=== PATIENT | male | born 1945 | race Caucasian/White ===

== ENCOUNTER 2016-10-07 07:28 | Outpatient (CLI) | payer MEDICARE | END 2016-10-07 07:29 | disposition home or self-care (01) | DX: I12.9 Hypertensive chronic kidney disease with stage 1 through stage 4 chronic kidney disease, or unspecified chronic kidney disease (principal); N18.1 Chronic kidney disease, stage 1; R73.9 Hyperglycemia, unspecified; E78.5 Hyperlipidemia, unspecified; R97.20 Elevated prostate specific antigen [PSA] ==

== ENCOUNTER 2017-07-26 17:38 | Outpatient (CLI) | payer MEDICARE ==
--- NOTE | 2017-07-27 14:48 | XRAY Report ---
FOUR-VIEW LEFT KNEE: 07/26/2017 CLINICAL INDICATION: Fall, pain. FINDINGS: AP, lateral, bilateral oblique views of the left knee demonstrate no evidence of acute fracture or dislocation. Mild osteoarthritis is present, with small osteophytes. A moderate effusion is seen. No lipohemarthrosis is present. IMPRESSION: MILD DEGENERATIVE CHANGES. MODERATE EFFUSION. NO EVIDENCE OF FRACTURE. edited sai TD: 07/27/2017 15:47 [facility]
== END 2017-07-26 17:39 | disposition home or self-care (01) ==
LOC: DI 17:38
PROVIDERS: ATTEND Nurse Practitioner Family
DX: M17.12 Unilateral primary osteoarthritis, left knee (principal); M25.462 Effusion, left knee

== ENCOUNTER 2017-08-01 10:09 | Outpatient (CLI) | payer MEDICARE ==
--- NOTE | 2017-08-01 16:45 | MRI Report ---
EXAM: LEFT KNEE MRI WITHOUT CONTRAST EXAM DATE: 08/01/2017 10:59 AM. CLINICAL HISTORY: Pain in left knee. COMPARISON: None. TECHNIQUE: Multiplanar, multisequence T1-weighted and fluid-sensitive sequences of the knee without c ontrast. Other: None. FINDINGS: Bones: No fractures or subluxations. No marrow edema. No bone lesions. Articular Cartilage: There is mild thinning of the articular cartilage on both sides of the medial co mpartment. 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 Medial Meniscus: The medial meniscus is intact. Lateral Meniscus: The lateral meniscus is intact. Cruciate Ligaments: The anterior and posterior cruciate ligaments are intact. Collateral Ligaments: There is some thickening of the anterior aspect of the proximal MCL. No focal f luid-filled gap is seen. Tendons: The quadriceps, patellar, semimembranosus, and popliteus tendons are unremarkable. Musculature: No edema or fatty atrophy. Other: No effusion. No discrete popliteal cyst. Multifocal ganglion cyst arises from the posterior as pect of the PCL region. Series 601 image 15, series 801 image 24. No loose bodies. The medial and lat eral retinacula are intact. Some soft tissue swelling and edema is present. IMPRESSION: 1. Mild thinning of the articular cartilage in both sides of the medial compartment. Lateral compartm ent is unremarkable. Bones show no fractures. There is also some grade 3-4 chondromalacia at the medi al aspect of patellofemoral joint. 2. Multifocal ganglion cyst arises from the posterior aspect of intercondylar notch, adjacent to the posterior margin of the PCL. This is 0.8 x 1.9 cm transversely extending for a 4.2 cm cephalocaudal e xtent. 3. Menisci, cruciates and collaterals unremarkable. There is some thickening of the anterior proximal MCL fibers, of uncertain consequence, possibly from previous injury and healing. [facility] MUSCULOSKELETAL RADIOLOGY SECTION Referring Provider Line: [phone] SITE ID: [id number]
== END 2017-08-01 10:10 | disposition home or self-care (01) ==
LOC: DI 10:09
PROVIDERS: ATTEND Family Medicine
DX: M22.42 Chondromalacia patellae, left knee (principal); M67.462 Ganglion, left knee

== ENCOUNTER 2017-11-04 17:24 | Inpatient (IN) | payer MEDICARE ==
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
[2017-11-04] MEDS ORDERED: ACETAMINOPHEN 325 MG TABLET PO PRN (18:33)
[2017-11-04] MEDS ORDERED: HYDROmorphone 1 MG/ML CARPUJECT IVP PRN (18:33)
[2017-11-04] MEDS ORDERED: ONDANSETRON ODT 4 MG TABLET TL PRN (18:33)
[2017-11-04 18:35] LABS: BASOPHILS % (AUTO) 0.3 %; EOSINOPHILS # (AUTO) 0.1 10^3/uL (0.0-0.7); EOSINOPHILS % (AUTO) 0.8 %; HGB - HEMOGLOBIN 14.6 g/dL (14.0-18.0); LYMPHOCYTES # (AUTO) 1.2 10^3/uL (1.5-3.5); LYMPHOCYTES % (AUTO) 9.1 %; MEAN CORPUSCULAR HEMOGLOBIN 31.7 pg (27.0-31.0); MEAN CORPUSCULAR HGB CONC 32.8 g/dL (32.0-36.0); MEAN CORPUSCULAR VOLUME 96.7 fL (80.0-94.0); MEAN PLATELET VOLUME 8.2 fL (7.4-11.4); MONOCYTES # (AUTO) 0.9 10^3/uL (0.0-1.0); MONOCYTES % (AUTO) 7.4 %; NEUTROPHILS # (AUTO) 10.5 10^3/uL (1.5-6.6); NEUTROPHILS % (AUTO) 82.4 %; PLT - PLATELET COUNT 209 10^3/uL (130-450); RED BLOOD COUNT 4.59 10^6/uL (4.70-6.10); RED CELL DISTRIBUTION WIDTH 13.9 % (12.0-15.0); WHITE BLOOD COUNT 12.8 x10^3/uL (4.8-10.8)
[2017-11-04] MEDS ORDERED: CYCLOBENZAPRINE 10 MG TABLET PO PRN (18:38)
[2017-11-04 18:40] LABS: CALCIUM 9.1 mg/dL (8.5-10.3); CREATININE 1.2 mg/dL (0.6-1.2)
--- NOTE | 2017-11-04 19:23 | XRAY Report ---
EXAM: CHEST RADIOGRAPHY EXAM DATE: 11/04/2017 06:35 PM. CLINICAL HISTORY: Chest pain. COMPARISON: None. TECHNIQUE: 1 view. FINDINGS: Lungs/Pleura: Clear. No effusion or pneumothorax. Mediastinum: Overall heart size borderline for cardiomegaly. Upper lobe vessels not distended. Other: None. IMPRESSION: No acute disease. [facility] Referring Provider Line: [phone] SITE ID: [id number]
--- NOTE | 2017-11-04 19:23 | XRAY Preliminary Report ---
Exam: XR CHEST 1 VIEW X-RAY IMPRESSION: No acute disease. [facility] SITE ID: [id number]
--- NOTE | 2017-11-04 19:26 | XRAY Report ---
EXAMS: 1. Right Knee Radiography 2. Left Knee Radiography EXAM DATE:11/04/2017 06:35 PM. CLINICAL HISTORY:B knee pain, poss quad tendon rupture s/p fall. COMPARISON: Left knee dated 07/26/2017. TECHNIQUE: 4 views each. FINDINGS: Right Knee: Bones: Normal. No fractures or bone lesions. Joints: Joint spaces well-preserved. Small joint effusion. Soft Tissues: Normal. No soft tissue swelling. Left Knee: Bones: Normal. No fractures or bone lesions. Joints: Joint spaces well-preserved. Moderate joint effusion. At least 2 small loose bodies in tool coordinator ior medial compartment. Soft Tissues: Small nonspecific soft tissue calcification lateral to distal femoral diametaphysis. IMPRESSION: Small to moderate joint effusions, left more than right, with small loose bodies on the left. [facility] Referring Provider Line: [phone] SITE ID: [id number]
[2017-11-04] MEDS: D5NS W/20 MEQ KCL 1,000 ML IV SCH (20:05)
[2017-11-04] MEDS: SODIUM CHLORIDE FLUSH 0.9% 10 ML SYRINGE IVP PRN (20:05)
[2017-11-05] MEDS ORDERED: diazePAM 5 MG TABLET PO PRN (00:18)
[2017-11-05] MEDS: ATENOLOL 25 MG TABLET PO SCH ×2 (00:52→21:31)
[2017-11-05] MEDS: oxyCODONE 5 MG TABLET PO PRN ×3 (00:53→21:31)
[2017-11-05] MEDS: SODIUM CHLORIDE FLUSH 0.9% 10 ML SYRINGE IVP SCH ×3 (00:53→15:40)
[2017-11-05] MEDS: D5NS W/20 MEQ KCL 1,000 ML IV SCH ×3 (06:09→23:09)
[2017-11-05] MEDS: POLYETHYLENE GLYCOL 3350 17 GM PACKET PO SCH (07:48)
[2017-11-05] MEDS: LOSARTAN 50 MG TABLET PO SCH ×2 (08:09→15:41)
[2017-11-05] MEDS: hydroCHLOROthiazide 25 MG TABLET PO SCH ×2 (08:09→15:42)
[2017-11-05] MEDS: FAMOTIDINE 20 MG TABLET PO SCH (08:09)
[2017-11-05] MEDS ORDERED: OLMESARTAN MEDOXOMIL 40 MG PO SCH (09:00)
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
[2017-11-05] MEDS ORDERED: BUPIVACAINE 0.25%-EPI 1:200000 PF 30 ML VIAL ONE (10:23)
[2017-11-05] MEDS ORDERED: LACTATED RINGERS 1,000 ML IV ONE ×3 (11:10→13:05)
[2017-11-05] MEDS ORDERED: CLINDAMYCIN 600 MG/50 ML 50 ML IV ONE (11:33)
[2017-11-05] MEDS ORDERED: BUPIVACAINE 0.25%-EPI 1:200000 PF 30 ML VIAL SUBQ ONE ×3 (12:23→12:37)
[2017-11-05] MEDS ORDERED: ePHEDrine 50 MG/ML VIAL IVP ONE (13:00)
[2017-11-05] MEDS ORDERED: fentaNYL 250 MCG/5 ML VIAL IVP ONE (13:00)
[2017-11-05] MEDS ORDERED: KETOROLAC 30 MG/ML VIAL IVP ONE (13:00)
[2017-11-05] MEDS ORDERED: ONDANSETRON 4 MG/2 ML VIAL IVP ONE (13:00)
[2017-11-05] MEDS ORDERED: LIDOCAINE-MPF 2% 5 ML VIAL IM ONE (13:00)
[2017-11-05] MEDS ORDERED: PROPOFOL 200 MG/20 ML VIAL IVP ONE (13:00)
[2017-11-05] MEDS ORDERED: ROCURONIUM 50 MG/5 ML VIAL IVP ONE (13:00)
[2017-11-05] MEDS ORDERED: TRANEXAMIC ACID 1,000 MG/10 ML VIAL IV ONE (13:00)
[2017-11-05] MEDS ORDERED: PROCHLORPERAZINE 10 MG/2 ML VIAL IVP PRN (13:35)
[2017-11-05] MEDS ORDERED: ONDANSETRON 4 MG/2 ML VIAL IVP PRN (13:35)
--- NOTE | 2017-11-05 13:35 | OPERATIVE REPORT ---
Operative Report - General Admit Date: 11/04/17 Procedure Date: 11/05/17 Planned Procedure: repair of bilateral quadriceps tendon tears Pre-Op Diagnosis: Bilateral Quadriceps tendon tears Procedure Performed: Primary repair of bilateral quadriceps tendon tears Post Op Diagnosis: same - Procedure Note Primary Surgeon: bonifacio Anesthesia Technique: General ET tube Estimated Blood Loss (mL): 60
[2017-11-05] MEDS ORDERED: BISACODYL 10 MG SUPP PR PRN (13:38)
[2017-11-05] MEDS ORDERED: SENNA 8.6 MG TABLET PO PRN (13:38)
[2017-11-05] MEDS ORDERED: oxyCOD/ACETAMIN 5 MG/325 MG TABLET PO PRN (13:38)
[2017-11-05] MEDS ORDERED: MORPHINE 2 MG/ML SYRINGE IVP PRN (13:38)
[2017-11-05] MEDS ORDERED: HYDROmorphone 1 MG/ML CARPUJECT ONE (13:46)
[2017-11-05] MEDS ORDERED: ACETAMINOPHEN 1,000 MG/100 ML 100 ML IV ONE (13:47)
[2017-11-05] MEDS ORDERED: D5.45NS W/20 MEQ KCL 1,000 ML IV SCH (14:00)
[2017-11-05] MEDS ORDERED: SODIUM CHLORIDE FLUSH 0.9% 10 ML SYRINGE IVP SCH (17:00)
[2017-11-05] MEDS: CLINDAMYCIN 600 MG/50 ML 50 ML IV SCH (17:56)
[2017-11-05] MEDS ORDERED: ACETAMINOPHEN 1,000 MG/100 ML 100 ML IV PRN (18:00)
--- NOTE | 2017-11-05 20:01 | PROVIDER PROGRESS NOTE ---
Hospitalist Cross-cover Note - Cross-Cover Note Cross-Cover Note: 11/05/17 19:59 RN on 09-24 found that he had low K of 3.2 on admit, was on [id number] K at 100 cc/ hr but no fu labs. She asked me to evaluate need to labs. K for tonight and BMP/CBC ordered for tomorrow.
[2017-11-05 21:00] LABS: CALCIUM 8.1 mg/dL (8.5-10.3); CREATININE 1.6 mg/dL (0.6-1.2)
[2017-11-06] MEDS: CLINDAMYCIN 600 MG/50 ML 50 ML IV SCH (00:41)
[2017-11-06] MEDS: SODIUM CHLORIDE FLUSH 0.9% 10 ML SYRINGE IVP SCH ×3 (00:42→16:10)
[2017-11-06 05:43] LABS: CALCIUM 7.8 mg/dL (8.5-10.3); CREATININE 1.3 mg/dL (0.6-1.2)
[2017-11-06 05:51] LABS: BASOPHILS % (AUTO) 0.3 %; EOSINOPHILS # (AUTO) 0.1 10^3/uL (0.0-0.7); EOSINOPHILS % (AUTO) 0.6 %; HGB - HEMOGLOBIN 12.3 g/dL (14.0-18.0); LYMPHOCYTES % (AUTO) 9.4 %; MEAN CORPUSCULAR HEMOGLOBIN 32.6 pg (27.0-31.0); MEAN CORPUSCULAR HGB CONC 33.3 g/dL (32.0-36.0); MEAN CORPUSCULAR VOLUME 97.8 fL (80.0-94.0); MEAN PLATELET VOLUME 8.4 fL (7.4-11.4); MONOCYTES # (AUTO) 1.1 10^3/uL (0.0-1.0); MONOCYTES % (AUTO) 10.7 %; NEUTROPHILS # (AUTO) 8.4 10^3/uL (1.5-6.6); PLT - PLATELET COUNT 164 10^3/uL (130-450); RED BLOOD COUNT 3.79 10^6/uL (4.70-6.10); RED CELL DISTRIBUTION WIDTH 13.7 % (12.0-15.0); WHITE BLOOD COUNT 10.6 x10^3/uL (4.8-10.8)
[2017-11-06] MEDS: oxyCODONE 5 MG TABLET PO PRN (07:23)
--- NOTE | 2017-11-06 08:08 | PROVIDER PROGRESS NOTE ---
Subjective - General Admit Date: 11/04/17 Procedure Date: 11/05/17 Post Op Days: 1 Procedure Performed: Repair of bilateral quadriceps tendons - Review of Systems Wound/Incisions: positive: Dressing dry and intact HEENT: positive: No symptoms Pulmonary: positive: No symptoms Cardiovascular: positive: No symptoms Gastrointestinal: positive: Constipation Musculoskeletal: positive: Joint pain Psychiatric: positive: No symptoms Objective - Patient Data Reviewed Vital Signs: Yes Vital Signs: Vital Signs x48h Temp Pulse Resp BP Pulse Ox 11/06/17 07:14 38.1 C H 66 18 137/82 H 96 11/06/17 05:00 37.2 C 69 16 118/73 96 11/06/17 01:00 37.0 C 70 16 121/75 96 Weight: Weight 11/04/17 11/05/17 11/06/17 23:59 23:59 23:59 Weight (kg) 102 kg Intake & Output: Intake and Output Totals x24h 11/04/17 11/05/17 11/06/17 23:59 23:59 23:59 Intake Total 100 2560.000 205 Output Total 550 625 350 Balance -450 1935.000 -145 - Lab Results Lab Results: 11/06/17 05:10 11/06/17 05:10 Other Lab Results: Lab Results x24hrs 11/06/17 11/06/17 11/05/17 Range/Units 05:10 05:10 20:44 WBC 10.6 (4.8-10.8) x10^3/uL RBC 3.79 L (4.70-6.10) 10^6/uL Hgb 12.3 L (14.0-18.0) g/dL Hct 37.1 L (42.0-52.0) % MCV 97.8 H (80.0-94.0) fL MCH 32.6 H (27.0-31.0) pg MCHC 33.3 (32.0-36.0) g/dL RDW 13.7 (12.0-15.0) % Plt Count 164 (130-450) 10^3/uL MPV 8.4 (7.4-11.4) fL Neut # 8.4 H (1.5-6.6) 10^3/uL Lymph # 1.0 L (1.5-3.5) 10^3/uL [place] # 1.1 H (0.0-1.0) 10^3/uL Eos # 0.1 (0.0-0.7) 10^3/uL Baso # 0.0 (0.0-0.1) 10^3/uL Absolute Nucleated RBC 0.00 x10^3/uL Nucleated RBC % 0.0 /100WBC Sodium 134 L 135 (135-145) mmol/L Potassium 3.5 3.2 L (3.5-5.0) mmol/L Chloride 101 100 L (101-111) mmol/L Carbon Dioxide 24 26 (21-32) mmol/L Anion Gap 9.0 9.0 (6-13) BUN 15 16 (6-20) mg/dL Creatinine 1.3 H 1.6 H (0.6-1.2) mg/dL Estimated GFR (MDRD) 54 L 43 L (>89) Glucose 140 H 131 H (70-100) mg/dL Calcium 7.8 L 8.1 L (8.5-10.3) mg/dL - Current Medications Current Medications: Current Medications Generic Name Dose Route Start Last Admin Trade Name Freq PRN Reason Stop Dose Admin Atenolol 50 mg 11/05/17 00:30 11/05/17 21:31 Tenormin PO 50 mg HS DANILO Administration Famotidine 20 mg 11/05/17 09:00 11/05/17 08:09 Pepcid PO 20 mg DAILY DANILO Administration Hydrochlorothiazide 25 mg 11/05/17 09:00 11/05/17 15:42 Hydrodiuril PO 25 mg DAILY DANILO Administration Potassium Chloride/Dextrose/Sod Cl 1,000 mls @ 100 mls/hr 11/04/17 19:00 01:17 IV 100 mls/hr .Q10H DANILO Infusion Losartan Potassium 100 mg 11/05/17 09:00 11/05/17 15:41 Cozaar PO 100 mg DAILY DANILO Administration Oxycodone HCl 5 mg 11/04/17 18:33 11/06/17 07:23 Roxicodone PO 5 mg Q4HR PRN Administration Pain 5 to 7 Polyethylene Glycol 17 gm 11/05/17 09:00 11/05/17 07:48 Miralax PO Not Given DAILY DANILO Sodium Chloride 10 ml 11/04/17 18:33 11/04/17 20:05 Normal Saline Flush 0.9% IVP 10 ml PRN PRN Administration NEEDED PER PROVIDER ORDERS Sodium Chloride 10 ml 11/05/17 01:00 11/06/17 00:42 Normal Saline Flush 0.9% IVP Not Given 0100,0900,1700 [facility] - Physical Exam Wound/Incisions: positive: Dressing dry and intact General Appearance: positive: No acute distress Cardiovascular: positive: Regular rate & rhythm Abdomen: positive: Non-tender Extremities: positive: Joint swelling Neurologic/Psychiatric: positive: Oriented x3, CN's nml (2-12), Motor nml, Sensation nml, Mood/affect nml Impression/Plan - Problem List Problem List: POD #1 Pt is progressing with expected pain and diminished ability to use walker. Pt has constipation. Rec. bowel program. Continue PT make plans for SNF.
[2017-11-06] MEDS: LOSARTAN 50 MG TABLET PO SCH (08:35)
[2017-11-06] MEDS: hydroCHLOROthiazide 25 MG TABLET PO SCH (08:35)
[2017-11-06] MEDS: FAMOTIDINE 20 MG TABLET PO SCH (08:35)
[2017-11-06] MEDS: POLYETHYLENE GLYCOL 3350 17 GM PACKET PO SCH (08:36)
[2017-11-06] MEDS ORDERED: OLMESARTAN MEDOXOMIL 40 MG PO SCH (09:00)
[2017-11-06] MEDS: D5NS W/20 MEQ KCL 1,000 ML IV SCH (09:57)
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
[2017-11-06] MEDS: CYCLOBENZAPRINE 10 MG TABLET PO PRN ×2 (12:35→21:02)
[2017-11-06] MEDS: SODIUM CHLORIDE FLUSH 0.9% 10 ML SYRINGE IVP PRN (12:35)
[2017-11-06] MEDS: ASPIRIN EC 325 MG TABLET PO SCH ×2 (13:24→21:01)
[2017-11-06] MEDS: ATENOLOL 25 MG TABLET PO SCH (21:01)
[2017-11-07] MEDS: SODIUM CHLORIDE FLUSH 0.9% 10 ML SYRINGE IVP SCH ×4 (06:14→23:51)
--- NOTE | 2017-11-07 07:39 | PROVIDER PROGRESS NOTE ---
Subjective - General Admit Date: 11/04/17 Procedure Date: 11/05/17 Post Op Days: 2 Procedure Performed: Repair of bilateral quadriceps tendons - Review of Systems Wound/Incisions: positive: Dressing dry and intact HEENT: positive: No symptoms Pulmonary: positive: No symptoms Cardiovascular: positive: No symptoms Gastrointestinal: positive: No symptoms Musculoskeletal: positive: Joint pain Psychiatric: positive: No symptoms Objective - Patient Data Reviewed Vital Signs: Yes Vital Signs: Vital Signs x48h Temp Pulse Resp BP Pulse Ox 11/07/17 05:00 36.7 C 80 20 148/81 H 98 11/07/17 00:54 37.0 C 75 20 142/82 H 96 Intake & Output: Intake and Output Totals x24h 11/05/17 11/06/17 11/07/17 23:59 23:59 23:59 Intake Total 2560.000 2970 Output Total 625 2150 950 Balance 1935.000 820 -950 - Lab Results Lab Results: 11/06/17 05:10 11/06/17 05:10 - Current Medications Current Medications: Current Medications Generic Name Dose Route Start Last Admin Trade Name Freq PRN Reason Stop Dose Admin Aspirin 325 mg 11/06/17 13:00 11/06/17 21:01 Ecotrin PO 325 mg BID DANILO Administration Atenolol 50 mg 11/05/17 00:30 11/06/17 21:01 Tenormin PO 50 mg HS DANILO Administration Cyclobenzaprine HCl 10 mg 11/05/17 00:18 11/06/17 21:02 Flexeril PO 10 mg TID PRN Administration MUSCLE SPASMS Famotidine 20 mg 11/05/17 09:00 11/06/17 08:35 Pepcid PO 20 mg DAILY DANILO Administration Hydrochlorothiazide 25 mg 11/05/17 09:00 11/06/17 08:35 Hydrodiuril PO 25 mg DAILY DANILO Administration Losartan Potassium 100 mg 11/05/17 09:00 11/06/17 08:35 Cozaar PO 100 mg DAILY DANILO Administration Oxycodone HCl 5 mg 11/04/17 18:33 11/06/17 07:23 Roxicodone PO 5 mg Q4HR PRN Administration Pain 5 to 7 Polyethylene Glycol 17 gm 11/05/17 09:00 11/06/17 08:36 Miralax PO 17 gm DAILY DANILO Administration Sodium Chloride 10 ml 11/04/17 18:33 11/06/17 12:35 Normal Saline Flush 0.9% IVP 10 ml PRN PRN Administration NEEDED PER PROVIDER ORDERS Sodium Chloride 10 ml 11/05/17 01:00 11/07/17 06:14 Normal Saline Flush 0.9% IVP Not Given 0100,0900,1700 DANILO - Physical Exam Wound/Incisions: positive: Dressing dry and intact Extremities: positive: Joint swelling Neurologic/Psychiatric: positive: CN's nml (2-12), Motor nml, Sensation nml, Mood/affect nml Impression/Plan - Problem List Problem List: POD #2 Pt is doing PT and beginning to tolerate some transfers. SNF planned for tomorrow.
[2017-11-07] MEDS: ASPIRIN EC 325 MG TABLET PO SCH ×2 (08:53→20:23)
[2017-11-07] MEDS: hydroCHLOROthiazide 25 MG TABLET PO SCH (08:53)
[2017-11-07] MEDS: LOSARTAN 50 MG TABLET PO SCH (08:53)
[2017-11-07] MEDS: FAMOTIDINE 20 MG TABLET PO SCH (08:53)
[2017-11-07] MEDS: POLYETHYLENE GLYCOL 3350 17 GM PACKET PO SCH (09:02)
[2017-11-07] MEDS: CYCLOBENZAPRINE 10 MG TABLET PO PRN (13:27)
--- NOTE | 2017-11-07 15:18 | Discharge Plan ---
"Discharge Plan for SNF / RESIDENTIAL - DC Plan and Transition Orders Disposition: 03 SNF DC/Xfer Condition: Good SNF Transition Orders: Admit to: [facility] under the care of Dr. Mederos Discharge Diagnosis: Bilateral Acute rupture of quadriceps tendons Medicare Certification: I certify that [facility] medically necessary on a continuing basis for any of the conditions for which she/he is receiving care during hospitalization. Notify PCP of admission and forward orders to primary provider for signature. Weight on admission and /Weekly/. Call PCP immediately if weight increases by 8 pounds or if patient develops dyspnea, chest pain/tightness or edema. House Bowel Program: Yes/ If no BM after 2 days, nurse may give M.O.M. 30ml PO PRN and /or ducolax Supp 1 MD and /or LOYDA 250mg P.O., and/or senna 1-2 tabs PO. On day 3 nurse may give repeat above order until residents constipation is resolved. Immunizations: Annual Influenza Vaccine: Yes/. (between Mar 17 and October 14.) Unless allergy or already given Two-Step PPD: Yes/ per [facility] 248-235 or appropriate documentation of approved exceptions Treatments & Other Orders: may have shower: seated with knees in extension, covered, braces off. Oxygen Orders: no Lab Tests or X-Rays Orders: no Orthopedic Orders: [knee braces and knee dressing to be left intact. OK to reposition braces as needed. ]. Medications: PLEASE REFER TO THE DISCHARGE MEDICATION LIST. Insulin Orders? /No Allergies and Adverse Reactions: Allergies Allergy/AdvReac Type Severity Reaction Status Date / Time Penicillins Allergy Intermediate Anaphylaxis Verified 11/03/14 09:07 - Diet Type: No added sugar Texture: Regular Liquids: Thin May have monthly special meal: Yes - Therapies | Activity Therapy: Evaluation | Treat if indicated: PT, OT Rehabilitation Potential: Maximize functional status Activity: knee braces locked at 10 degrees, Weight Bearing: Full Weight (with walker) Assistance Devices: Wheelchair, Walker Additional Instructions: knee braces to remain in place at all times except when repositioning is needed, and then the knees are to remain in extension all ambulation and transfers with knee braces in place dressings to be left in place on knees Shower only with knees in extension and wounds kept dry (shower chair only) Follow Up: Orthopedics: Dr. Lezama in one week after discharge."
[2017-11-07] MEDS: ATENOLOL 25 MG TABLET PO SCH (20:22)
[2017-11-07] MEDS: ACETAMINOPHEN 325 MG TABLET PO PRN (20:25)
[2017-11-08] MEDS: FAMOTIDINE 20 MG TABLET PO SCH (09:00)
[2017-11-08] MEDS: ASPIRIN EC 325 MG TABLET PO SCH (09:00)
[2017-11-08] MEDS: hydroCHLOROthiazide 25 MG TABLET PO SCH (09:01)
[2017-11-08] MEDS: SODIUM CHLORIDE FLUSH 0.9% 10 ML SYRINGE IVP SCH (09:02)
[2017-11-08] MEDS: LOSARTAN 50 MG TABLET PO SCH (09:02)
[2017-11-08] MEDS: POLYETHYLENE GLYCOL 3350 17 GM PACKET PO SCH (09:06)
[2017-11-08] MEDS ORDERED: SENNA 8.6 MG TABLET PO SCH (09:30)
--- NOTE | 2017-11-08 09:57 | Discharge Plan ---
"Discharge Plan for SNF / HALF-WAY - DC Plan and Transition Orders Disposition: 03 SNF DC/Xfer Condition: Good SNF Transition Orders: Admit to: [facility] under the care of [facility] Discharge Diagnosis: Bilateral repair of ruptured quadriceps tendons Medicare Certification: I certify that [facility] is medically necessary on a continuing basis for any of the conditions for which she/he is receiving care during hospitalization. Notify PCP of admission and forward orders to primary provider for signature. Weight on admission and weekly. Call PCP immediately if weight increases by 8 pounds or if patient develops dyspnea, chest pain/tightness or edema. House Bowel Program: y If no BM after 2 days, nurse may give M.O.M. 30ml PO PRN and /or ducolax Supp 1 [place] and /or LOYDA 250mg P.O., and/or senna 1-2 tabs PO. On day 3 nurse may give repeat above order until residents constipation is resolved. Immunizations: Annual Influenza Vaccine: y. (between Mar 17 and October 14.) Unless allergy or already given Two-Step PPD: y per [facility] [id number] or appropriate documentation of approved exceptions Treatments & Other Orders: Hinged braces to remain locked in extension. PT to ambulate with walker. Shower, Carefully, seated, knees covered and extended. Oxygen Orders: n Lab Tests or X-Rays Orders: n Orthopedic Orders: Leave dressings in place. Adjust brace as needed for full- time wear (ex. shower). Medications: PLEASE REFER TO THE DISCHARGE MEDICATION LIST. Insulin Orders? NO Diagnosis: Diabetes Initiate hypo and hyperglycemia protocols for BG <70 and BG >375. May check BG prn for signs/symptoms of dysglycemia. Frequency of BG checks: [] Correction Insulin: - Select the type of insulin below [Choose: Novolog/Humalog]100 units /ml insulin inject subq per orders indicate below [] LOW DOSE [] MODERATE DOSE [] MODERATE/HIGH DOSE [] HIGH DOSE GB UNITS GB UNITS GB UNITS GB UNITS 61-140 0 UNITS 61-140 0 UNITS 61-140 0 UNITS 61-140 0 UNITS 141-175 1 UNITS 141-175 1 UNITS 141-175 2 UNITS 141-175 3 UNITS 176-225 2 UNITS 176-225 3 UNITS 176-225 4 UNITS 176-225 5 UNITS 226-275 3 UNITS 226-275 5 UNITS 226-275 6 UNITS 226-275 7 UNITS 276-325 4 UNITS 276-325 7 UNITS 276-325 8 UNITS 276-325 9 UNITS 326-375 5 UNITS 326-375 9 UNITS 326-375 10 UNITS 326-375 11 UNITS >375 CONTACT MD >375 CONTACT MD >375 CONTACT MD >375 CONTACT MD Custom Dosing: [Choose: None/Novolog/Humalog] 100 units/ml Insulin inject subq as follows: GB Units 61-140 [] Units 141-175 [] Units 176-225 [] Units 226-275 [] Units 276-325 []Units 326-375 [] Units >375 Contact MD Allergies and Adverse Reactions: Allergies Allergy/AdvReac Type Severity Reaction Status Date / Time Penicillins Allergy Intermediate Anaphylaxis Verified 11/03/14 09:07 - Medications New Prescriptions: oxyCODONE [Roxicodone] 5 mg PO Q4HR PRN #30 tablet PRN Reason: Pain 5 to 7 Aspirin EC [Ecotrin] 325 mg PO BID #60 tablet - Diet Type: No added sugar Texture: Regular May have monthly special meal: Yes - Therapies | Activity Therapy: Evaluation | Treat if indicated: PT Rehabilitation Potential: Maximize functional status Activity: walker, fwb, braced Weight Bearing: Full Weight Assistance Devices: Wheelchair, Walker Additional Instructions: knee braces to remain in place at all times except when repositioning is needed, and then the knees are to remain in extension all ambulation and transfers with knee braces in place dressings to be left in place on knees Shower only with knees in extension and wounds kept dry (shower chair only) Follow Up: [facility]Ortho in one week"
[2017-11-08] MEDS: ACETAMINOPHEN 325 MG TABLET PO PRN (10:25)
[2017-11-08 12:36] VITALS: BP 126/81
--- NOTE | 2017-11-17 10:11 | DISCHARGE SUMMARY ---
Physician: Jannie Lezama MD DATE OF ADMISSION: 11/04/2017 DATE OF DISCHARGE: 11/08/2017 ADMISSION DIAGNOSIS: Bilateral quadriceps tendon tears. OPERATIVE PROCEDURE: 11/05/2017, a primary repair of bilateral quadriceps tendons REASON FOR ADMISSION: Patient is a 71-year-old male who suffered a spontaneous rupture of both quadriceps tendons as [place] Patient presented to the emergency room, was found to have quadriceps tears at the insertion of quads into the patella, both knees. Patient was admitted to the hospital for planned surgical intervention on 11/05/2017. Patient's history and physical exam are documented in the admit record. HOSPITAL COURSE: Patient was admitted and he underwent surgical repair on 11/05. This involved a primary repair of both quadriceps tendons to the patellas. In the aftercare period, patient was in bilateral knee braces with soft dressings in place, and on the floor was receiving standard postoperative care including pain management, IV antibiotics, DVT prophylaxis with aspirin and a resumption of his usual medication. At the time of discharge on 11/08/2017, patient was discharged to a custodial facility. At the time, he was comfortable with p.o. pain medicines. He was tolerating bracing and his wounds were showing uneventful healing. Postoperative plan being for continued bracing for 4-6 weeks and then with initiation of range of motion of the knees in a very controlled fashion and followup to be in clinic within 1 week. Patient was discharged with his regular medications with the addition also of pain medication and aspirin. TD: 11/17/2017 10:10
== END 2017-11-08 13:21 | DRG 502 ==
LOC: ED 17:24 → MS2 18:33
PROVIDERS: ADMIT Orthopaedic Surgery; ATTEND Orthopaedic Surgery
PROC: 0KQS0ZZ Repair Right Lower Leg Muscle, Open Approach (ICD-10-PCS; 2017-11-05)
PROC: 0KQT0ZZ Repair Left Lower Leg Muscle, Open Approach (ICD-10-PCS; principal; 2017-11-05 10:30)
DX: S76.112A Strain of left quadriceps muscle, fascia and tendon, initial encounter (principal); S76.111A Strain of right quadriceps muscle, fascia and tendon, initial encounter; E87.6 Hypokalemia; Y93.39 Activity, other involving climbing, rappelling and jumping off; G47.30 Sleep apnea, unspecified; F17.200 Nicotine dependence, unspecified, uncomplicated; E66.9 Obesity, unspecified; Z68.36 Body mass index [BMI] 36.0-36.9, adult; Z99.81 Dependence on supplemental oxygen; Y93.H2 Activity, gardening and landscaping; Y92.79 Other farm location as the place of occurrence of the external cause; Z79.899 Other long term (current) drug therapy; Z72.89 Other problems related to lifestyle
CPT/HCPCS: 36415; 71045; 80048; 85025; 93005; 99283; 99285

== ENCOUNTER 2018-10-26 08:28 | Outpatient (CLI) | payer MEDICARE ==
[2018-10-26 11:01] LABS: ALBUMIN 3.7 g/dL (3.2-5.5); ALBUMIN/GLOBULIN RATIO 1.1 (1.0-2.2); ALKALINE PHOSPHATASE 58 IU/L (42-121); ALT ALANINE AMINOTRANSFERASE 33 IU/L (10-60); AST ASPARTATE AMINOTRANSFERASE 32 IU/L (10-42); BILIRUBIN,TOTAL 0.5 mg/dL (0.2-1.0); BUN - BLOOD UREA NITROGEN 26 mg/dL (6-20); CALCIUM 8.8 mg/dL (8.5-10.3); CARBON DIOXIDE - CO2 28 mmol/L (21-32); CHLORIDE 101 mmol/L (101-111); CHOL/HDL RATIO 5.3 (<5.0); CHOLESTEROL 211 mg/dL; CREATININE 1.5 mg/dL (0.6-1.2); GFR - MDRD 46 (>89); GLUCOSE 110 mg/dL (70-100); HDL CHOLESTEROL 40 mg/dL; LDL CHOLESTEROL,CALCULATED 137 mg/dL; LDL/HDL RATIO 3.4 (<3.6); SODIUM 138 mmol/L (135-145); VLDL CHOLESTEROL 34 mg/dL
[2018-10-26 11:07] LABS: HEMOGLOBIN A1C 0.69 g/dL; HEMOGLOBIN A1C % 6.1 % (4.6-6.2); PSA FREE 0.69 ng/mL (0.16-2.81)
[2018-10-26 11:08] LABS: PSA TOTAL 3.36 ng/mL (0.000-2.000)
== END 2018-10-26 08:29 | disposition home or self-care (01) ==
LOC: LAB.F 08:28
PROVIDERS: ATTEND Internal Medicine
DX: E78.5 Hyperlipidemia, unspecified (principal); R73.9 Hyperglycemia, unspecified; R97.20 Elevated prostate specific antigen [PSA]
CPT/HCPCS: 36415; 80053; 80061; 83036; 83721; 84153; 84154

== ENCOUNTER 2019-08-22 08:29 | Outpatient (CLI) | payer MEDICARE ==
[2019-08-22 10:04] LABS: BASOPHILS # (AUTO) 0.1 10^3/uL (0.0-0.1); BASOPHILS % (AUTO) 0.7 %; EOSINOPHILS # (AUTO) 0.2 10^3/uL (0.0-0.7); EOSINOPHILS % (AUTO) 1.7 %; HGB - HEMOGLOBIN 14.7 g/dL (14.0-18.0); LYMPHOCYTES # (AUTO) 1.8 10^3/uL (1.5-3.5); LYMPHOCYTES % (AUTO) 16.4 %; MEAN CORPUSCULAR HEMOGLOBIN 31.4 pg (27.0-31.0); MEAN CORPUSCULAR HGB CONC 32.5 g/dL (32.0-36.0); MEAN CORPUSCULAR VOLUME 96.6 fL (80.0-94.0); MEAN PLATELET VOLUME 9.6 fL (7.4-11.4); MONOCYTES # (AUTO) 1.1 10^3/uL (0.0-1.0); MONOCYTES % (AUTO) 9.9 %; NEUTROPHILS # (AUTO) 7.6 10^3/uL (1.5-6.6); NEUTROPHILS % (AUTO) 70.7 %; PLT - PLATELET COUNT 336 10^3/uL (130-450); RED BLOOD COUNT 4.68 10^6/uL (4.70-6.10); WHITE BLOOD COUNT 10.7 x10^3/uL (4.8-10.8)
[2019-08-22 10:21] LABS: ALKALINE PHOSPHATASE 62 IU/L (42-121); ALT ALANINE AMINOTRANSFERASE 35 IU/L (10-60); AST ASPARTATE AMINOTRANSFERASE 27 IU/L (10-42); BUN - BLOOD UREA NITROGEN 26 mg/dL (6-20); CALCIUM 9.3 mg/dL (8.5-10.3); CARBON DIOXIDE - CO2 26 mmol/L (21-32); CHLORIDE 97 mmol/L (101-111); CHOL/HDL RATIO 6.1 (<5.0); CHOLESTEROL 226 mg/dL; CREATININE 1.4 mg/dL (0.6-1.2); GFR - MDRD 50 (>89); GLUCOSE 136 mg/dL (70-100); HDL CHOLESTEROL 37 mg/dL; LDL CHOLESTEROL,CALCULATED 163 mg/dL; LDL/HDL RATIO 4.4 (<3.6); SODIUM 137 mmol/L (135-145); TOTAL PROTEIN 7.9 g/dL (6.7-8.2); URIC ACID 9.4 mg/dL (2.6-7.2); VLDL CHOLESTEROL 26 mg/dL
[2019-08-22 10:48] LABS: HB2 TOTAL 14.6 g/dL; HEMOGLOBIN A1C 0.73 g/dL; HEMOGLOBIN A1C % 6.7 % (4.6-6.2)
== END 2019-08-22 08:30 | disposition home or self-care (01) ==
LOC: LAB.S 08:29
PROVIDERS: ATTEND Internal Medicine
DX: E78.5 Hyperlipidemia, unspecified (principal); R73.02 Impaired glucose tolerance (oral); M79.671 Pain in right foot
CPT/HCPCS: 36415; 80053; 80061; 83036; 83721; 84550; 85025; 85651

== ENCOUNTER 2020-01-02 07:05 | Outpatient (CLI) | payer MEDICARE ==
[2020-01-02 15:25] LABS: CALCIUM 9.1 mg/dL (8.5-10.3); CREATININE 1.2 mg/dL (0.6-1.2); URIC ACID 5.2 mg/dL (2.6-7.2)
== END 2020-01-02 07:06 | disposition home or self-care (01) ==
LOC: LAB.S 07:05
PROVIDERS: ATTEND Internal Medicine
DX: M10.9 Gout, unspecified (principal)
CPT/HCPCS: 36415; 80048; 84550

== ENCOUNTER 2020-11-30 08:32 | Outpatient (CLI) | payer MEDICARE ==
[2020-11-30 14:27] LABS: BASOPHILS # (AUTO) 0.1 10^3/uL (0.0-0.1); BASOPHILS % (AUTO) 0.7 %; EOSINOPHILS # (AUTO) 0.2 10^3/uL (0.0-0.7); EOSINOPHILS % (AUTO) 2.5 %; HCT - HEMATOCRIT 45.8 % (42.0-52.0); HGB - HEMOGLOBIN 15.3 g/dL (14.0-18.0); LYMPHOCYTES # (AUTO) 1.7 10^3/uL (1.5-3.5); LYMPHOCYTES % (AUTO) 21.8 %; MEAN CORPUSCULAR HEMOGLOBIN 32.7 pg (27.0-31.0); MEAN CORPUSCULAR HGB CONC 33.4 g/dL (32.0-36.0); MEAN CORPUSCULAR VOLUME 97.9 fL (80.0-94.0); MEAN PLATELET VOLUME 10.5 fL (7.4-11.4); MONOCYTES # (AUTO) 0.7 10^3/uL (0.0-1.0); MONOCYTES % (AUTO) 8.7 %; NEUTROPHILS % (AUTO) 65.6 %; PLT - PLATELET COUNT 214 10^3/uL (130-450); RED BLOOD COUNT 4.68 10^6/uL (4.70-6.10); RED CELL DISTRIBUTION WIDTH 13.1 % (12.0-15.0); WHITE BLOOD COUNT 7.7 x10^3/uL (4.8-10.8)
[2020-11-30 14:42] LABS: ALBUMIN 4.3 g/dL (3.2-5.5); ALBUMIN/GLOBULIN RATIO 1.3 (1.0-2.2); ALKALINE PHOSPHATASE 60 IU/L (42-121); ALT ALANINE AMINOTRANSFERASE 28 IU/L (10-60); AST ASPARTATE AMINOTRANSFERASE 26 IU/L (10-42); BILIRUBIN,TOTAL 0.7 mg/dL (0.2-1.0); BUN - BLOOD UREA NITROGEN 24 mg/dL (6-20); CALCIUM 9.3 mg/dL (8.5-10.3); CARBON DIOXIDE - CO2 27 mmol/L (21-32); CHLORIDE 102 mmol/L (101-111); CHOL/HDL RATIO 4.7 (<5.0); CHOLESTEROL 243 mg/dL; CREATININE 1.2 mg/dL (0.6-1.2); GFR - MDRD 59 (>89); GLUCOSE 124 mg/dL (70-100); HDL CHOLESTEROL 52 mg/dL; LDL CHOLESTEROL,CALCULATED 166 mg/dL; LDL/HDL RATIO 3.2 (<3.6); POTASSIUM 3.4 mmol/L (3.5-5.0); SODIUM 138 mmol/L (135-145); TOTAL PROTEIN 7.5 g/dL (6.7-8.2); TRIGLYCERIDES 127 mg/dL; VLDL CHOLESTEROL 25 mg/dL
== END 2020-11-30 08:33 | disposition home or self-care (01) ==
LOC: LAB.S 08:32
PROVIDERS: ATTEND Internal Medicine
DX: I10 Essential (primary) hypertension (principal)
CPT/HCPCS: 36415; 80053; 80061; 83721; 85025

== ENCOUNTER 2021-03-23 10:26 | Outpatient (CLI) | payer MEDICARE ==
[2021-03-23 11:29] VITALS: BP 147/87
--- NOTE | 2021-03-23 11:29 | SLEEP CARE CONSULTATION ---
Information from patient questionnaire entered by Masha Potter. I have reviewed and concur with the information entered by Masha Potter. This document represents the service I personally performed and the decisions made by , Nasrin Cool ARNP. History of Present Illness Service Date and Time: 03/23/2021 1026 Reason for Visit: New patient, Previously diagnosed sleep apnea (severe - AHI - 54.7), sleep apnea on CPAP therapy (Aprct), Re-establish care (last seen 12/2010) Chief Complaint: reports: Other (CPAP recall) Usual bedtime: 10 pm Time it takes to fall asleep: 30 minutes Snores at night: No Observed to quit breathing while asleep: No Sleeps alone due to snoring: No Number of times waking at night: 2 Reasons for waking at night: reports: Bathroom Toss, Turn, or Twitch while sleeping: No Recalls having dreams: Yes Feels refreshed in the morning: Yes Morning headache: No Sleepy or fatigued during the day: No Ever fallen asleep while driving: No Takes day naps: No Dreams during day naps: No Prior sleep studies: Yes Year and Where: 2009 - [facility] Type of Sleep Study: Polysomnography Additional HPI information: KIANA BELLO was previously diagnosed to have severe, AHI 54.7, obstructive sleep apnea-hypopnea syndrome and comes in today to re-establish care for CPAP therapy. He also needs to update his device that he was informed was on the [employer] recall. - Parasomnia Symptoms Ever been unable to move upon waking from sleep: No Walks in sleep: No Talks in sleep: No Ever acted out dreams in sleep: No Ever felt weak in the knees when startled or emotional: No Bothered by creepy, crawly, restless sensations in legs: No Problems with memory or concentration: No CPAP Compliance Data - Data Reviewed with Patient Average duration of nightly device use: 9 hours 33 minutes Compliance rate %: 100 Current pressure setting (cmH2O): 13 Average residual AHI: 0.2 Average large leak: 24 seconds Compliance data discussion: He got his machine in 2009 from [employer]. He still gets supplies from [employer]. He uses a nasal pillows cushion. He does not have a backup. His current machine is over 10 years old and is on the recall. Subjective Patient concerns: denies: aerophagia, mask discomfort, air blowing in eyes, mask leak noise, condensation in mask/hose, nasal congestion, dry mouth, nose, throat, epistaxis, other Observed to snore while using device: No Current pressure setting perceived as: comfortable On therapy, patient: reports: sleeping better, awakening more refreshed, being more awake and alert during the day, more rested overall. denies: drowsiness while driving Initial Strang Sleepiness Scale score: 2 (in 2009) Current Strang Sleepiness Scale score: 2 Past Medical History Past Medical History: reports: Hypertension, Gout, Other (back issues) Social History The patient's occupation is a Retired. Patient is and lives in [place]. Have you smoked in the past 12 months: No Cigarettes per day (20/pack): 20 Years of smokin Quit date: 1969 Smoking Pack Years: 5.0 Alcohol use: Yes Alcohol amount and frequency: 2 drinks daily Caffeine use: Yes Caffeine amount and frequency: 2 drinks daily Family History Family history of sleep disordered breathing: Yes Family Hx Sleep Apnea: Sibling: Sleep apnea - Treated Allergies and Home Medications Drug allergies reviewed: Yes (Penicillin) Home medication list reviewed: Yes Allergy and home medication list: Benicar HCTZ Amlodipine Allopurinol Ibuprofen, prn Review of Systems Cardiovascular: reports: high blood pressure, leg or foot swelling Gastrointestinal: denies: heartburn Neurological: denies: headaches Psychiatric: denies: anxiety, depression, mood disorder Ear/Nose/Throat: reports: nasal congestion, tonsillectomy Musculoskeletal: reports: back pain Immunologic: reports: sneezing Physical Exam Blood Pressure: 147/87 Cuff size: wrist Heart Rate: 84 O2 Saturation: 97 Height: 5 ft 6 in Weight: 231 lb Body Mass Index: 37.3 BMI Classification: Obese Heart: regular rate and rhythm Lungs: clear bilaterally Impression and Plan 1. Obstructive Sleep Apnea-Hypopnea Syndrome, severe, with excellent treatment compliance and excellent apnea control. On CPAP therapy, the patient has better sleep quality and is more rested overall. Patient found out about recall on his device which is over 10 years old. He states it still works fine he has not had any trouble with it. He did have one time when he found his membership was not seated and he pushed it back in. He is not sure if he lost any information during that time. He states he uses it every night and is satisfied with current treatment. Patient has already registered their device for the recall. Patient denies any black particles seen in machine or hoses, any unusual odors coming from device. Patient has not experienced any physical symptoms such as upper airway irritation, headache, skin or eye irritation, asthma, nausea/vomi ting, difficulty breathing or chest pain. Patient informed that they may use an inline CPAP filter that they can obtain online to reduce chance of any particles being inhaled or ingested. We discussed thoroughly the health risks of not using the CPAP versus continuing use with the filter in place. If patient is not able to sleep due to waking up choking, gasping for air or other respiratory distress that they may decide to continue using it until it is either replaced or repaired. Since the patients current machine is at least 5 years old the patient is opting to update their device with a device that is not on the recall. Patient voiced understanding and agreement with plan. Patient was encouraged to lose weight for their overall health and to reduce apneas. Patient's apnea severity and rationale for treatment to reduce apnea, improve sleep quality and reduce cardiovascular and cerebrovascular events was reviewed. I also reviewed the benefit of consistent device use of CPAP for hypertension. * Continue CPAP pressure at 13 cmH2O * Update device and supplies * Notify me if snoring with mask or feeling that the pressure is too much or too little * Attempt to lose weight * Call this office if any problems using CPAP * Return for follow up one month after obtaining new device, or sooner if concerns arise Counseling Topics: Spare mask, Weight loss health impact Visit Type: In Office Time Spent with Patient (minutes): 27 Provider Statement: I spent 100% of the Face to Face Visit with the patient with greater than 50% spent counseling the patient and coordination of care.
== END 2021-03-23 10:27 | disposition home or self-care (01) ==
LOC: SC 10:26
PROVIDERS: ATTEND Nurse Practitioner Family
DX: G47.33 Obstructive sleep apnea (adult) (pediatric) (principal); E66.9 Obesity, unspecified; Z68.37 Body mass index [BMI] 37.0-37.9, adult
CPT/HCPCS: 99202; G0463; 99212

== ENCOUNTER 2021-05-25 08:09 | Outpatient (CLI) | payer MEDICARE ==
[2021-05-25 14:49] LABS: BASOPHILS # (AUTO) 0.1 10^3/uL (0.0-0.1); BASOPHILS % (AUTO) 0.7 %; EOSINOPHILS # (AUTO) 0.1 10^3/uL (0.0-0.7); EOSINOPHILS % (AUTO) 1.8 %; HCT - HEMATOCRIT 46.8 % (42.0-52.0); HGB - HEMOGLOBIN 15.7 g/dL (14.0-18.0); LYMPHOCYTES # (AUTO) 1.7 10^3/uL (1.5-3.5); LYMPHOCYTES % (AUTO) 23.8 %; MEAN CORPUSCULAR HEMOGLOBIN 32.6 pg (27.0-31.0); MEAN CORPUSCULAR HGB CONC 33.5 g/dL (32.0-36.0); MEAN CORPUSCULAR VOLUME 97.1 fL (80.0-94.0); MEAN PLATELET VOLUME 10.5 fL (7.4-11.4); MONOCYTES # (AUTO) 0.7 10^3/uL (0.0-1.0); NEUTROPHILS # (AUTO) 4.5 10^3/uL (1.5-6.6); NEUTROPHILS % (AUTO) 63.3 %; PLT - PLATELET COUNT 242 10^3/uL (130-450); RED BLOOD COUNT 4.82 10^6/uL (4.70-6.10); RED CELL DISTRIBUTION WIDTH 12.8 % (12.0-15.0); WHITE BLOOD COUNT 7.1 x10^3/uL (4.8-10.8)
[2021-05-25 15:46] LABS: ALBUMIN 4.3 g/dL (3.2-5.5); ALBUMIN/GLOBULIN RATIO 1.2 (1.0-2.2); ALKALINE PHOSPHATASE 51 IU/L (42-121); ALT ALANINE AMINOTRANSFERASE 36 IU/L (10-60); AST ASPARTATE AMINOTRANSFERASE 29 IU/L (10-42); BILIRUBIN,TOTAL 1.1 mg/dL (0.2-1.0); BUN - BLOOD UREA NITROGEN 19 mg/dL (6-20); CALCIUM 9.5 mg/dL (8.5-10.3); CARBON DIOXIDE - CO2 26 mmol/L (21-32); CHLORIDE 101 mmol/L (101-111); CHOL/HDL RATIO 5.5 (<5.0); CHOLESTEROL 247 mg/dL; GFR - MDRD 73 (>89); GLUCOSE 116 mg/dL (70-100); HDL CHOLESTEROL 45 mg/dL; LDL CHOLESTEROL,CALCULATED 175 mg/dL; LDL/HDL RATIO 3.9 (<3.6); POTASSIUM 3.4 mmol/L (3.5-5.0); SODIUM 137 mmol/L (135-145); TOTAL PROTEIN 7.8 g/dL (6.7-8.2); TRIGLYCERIDES 133 mg/dL; VLDL CHOLESTEROL 27 mg/dL
== END 2021-05-25 08:10 | disposition home or self-care (01) ==
LOC: LAB.S 08:09
PROVIDERS: ATTEND Internal Medicine
DX: E87.6 Hypokalemia (principal); E78.5 Hyperlipidemia, unspecified; Z12.5 Encounter for screening for malignant neoplasm of prostate; I10 Essential (primary) hypertension
CPT/HCPCS: 36415; 80053; 80061; 85025; G0103; 83721; 84153

== ENCOUNTER 2021-11-26 08:21 | Outpatient (CLI) | payer MEDICARE ==
[2021-11-26 14:40] LABS: BASOPHILS % (AUTO) 0.5 %; EOSINOPHILS # (AUTO) 0.1 10^3/uL (0.0-0.7); EOSINOPHILS % (AUTO) 1.9 %; HCT - HEMATOCRIT 44.8 % (42.0-52.0); HGB - HEMOGLOBIN 15.3 g/dL (14.0-18.0); LYMPHOCYTES # (AUTO) 1.8 10^3/uL (1.5-3.5); MEAN CORPUSCULAR HEMOGLOBIN 32.6 pg (27.0-31.0); MEAN CORPUSCULAR HGB CONC 34.2 g/dL (32.0-36.0); MEAN CORPUSCULAR VOLUME 95.3 fL (80.0-94.0); MEAN PLATELET VOLUME 10.5 fL (7.4-11.4); MONOCYTES # (AUTO) 0.7 10^3/uL (0.0-1.0); MONOCYTES % (AUTO) 9.7 %; NEUTROPHILS # (AUTO) 4.6 10^3/uL (1.5-6.6); NEUTROPHILS % (AUTO) 63.5 %; PLT - PLATELET COUNT 215 10^3/uL (130-450); WHITE BLOOD COUNT 7.3 x10^3/uL (4.8-10.8)
[2021-11-26 15:19] LABS: ALBUMIN 4.2 g/dL (3.2-5.5); ALBUMIN/GLOBULIN RATIO 1.3 (1.0-2.2); BILIRUBIN,TOTAL 1.1 mg/dL (0.2-1.0); CALCIUM 9.4 mg/dL (8.5-10.3); CREATININE 1.1 mg/dL (0.6-1.2); POTASSIUM 3.3 mmol/L (3.5-5.0); TOTAL PROTEIN 7.4 g/dL (6.7-8.2)
== END 2021-11-26 08:22 | disposition home or self-care (01) ==
LOC: LAB.S 08:21
PROVIDERS: ATTEND Registered Nurse
DX: I10 Essential (primary) hypertension (principal)
CPT/HCPCS: 36415; 80053; 85025

== ENCOUNTER 2022-06-27 08:57 | Outpatient (CLI) | payer MEDICARE ==
[2022-06-27 15:37] LABS: ALBUMIN 4.2 g/dL (3.2-5.5); ALBUMIN/GLOBULIN RATIO 1.2 (1.0-2.2); ALKALINE PHOSPHATASE 51 IU/L (42-121); ALT ALANINE AMINOTRANSFERASE 25 IU/L (10-60); AST ASPARTATE AMINOTRANSFERASE 28 IU/L (10-42); BILIRUBIN,TOTAL 0.9 mg/dL (0.2-1.0); BUN - BLOOD UREA NITROGEN 25 mg/dL (6-20); CALCIUM 7.5 mg/dL (8.5-10.3); CARBON DIOXIDE - CO2 23 mmol/L (21-32); CHLORIDE 104 mmol/L (101-111); CHOL/HDL RATIO 4.3 (<5.0); CHOLESTEROL 231 mg/dL; CREATININE 1.1 mg/dL (0.6-1.2); GFR - MDRD 65 (>89); GLUCOSE 122 mg/dL (70-100); HDL CHOLESTEROL 54 mg/dL; LDL CHOLESTEROL,CALCULATED 153 mg/dL; LDL/HDL RATIO 2.8 (<3.6); POTASSIUM 5.3 mmol/L (3.5-5.0); SODIUM 140 mmol/L (135-145); TOTAL PROTEIN 7.6 g/dL (6.7-8.2); TRIGLYCERIDES 122 mg/dL; VLDL CHOLESTEROL 24 mg/dL
== END 2022-06-27 08:58 | disposition home or self-care (01) ==
LOC: LAB.S 08:57
PROVIDERS: ATTEND Registered Nurse
DX: E78.5 Hyperlipidemia, unspecified (principal); Z79.899 Other long term (current) drug therapy
CPT/HCPCS: 36415; 80053; 80061; 83036; 83721; 84153; 85025

== ENCOUNTER 2022-06-28 14:10 | Outpatient (CLI) | payer MEDICARE ==
[2022-06-28 14:24] LABS: BASOPHILS % (AUTO) 0.4 %; EOSINOPHILS # (AUTO) 0.1 10^3/uL (0.0-0.7); HCT - HEMATOCRIT 42.3 % (42.0-52.0); LYMPHOCYTES # (AUTO) 0.9 10^3/uL (1.5-3.5); LYMPHOCYTES % (AUTO) 9.9 %; MEAN CORPUSCULAR HEMOGLOBIN 32.6 pg (27.0-31.0); MEAN CORPUSCULAR HGB CONC 33.1 g/dL (32.0-36.0); MEAN CORPUSCULAR VOLUME 98.4 fL (80.0-94.0); MEAN PLATELET VOLUME 9.5 fL (7.4-11.4); MONOCYTES # (AUTO) 0.8 10^3/uL (0.0-1.0); MONOCYTES % (AUTO) 8.2 %; NEUTROPHILS # (AUTO) 7.4 10^3/uL (1.5-6.6); NEUTROPHILS % (AUTO) 80.2 %; PLT - PLATELET COUNT 213 10^3/uL (130-450); RED CELL DISTRIBUTION WIDTH 13.4 % (12.0-15.0); WHITE BLOOD COUNT 9.2 x10^3/uL (4.8-10.8)
[2022-06-28 21:12] LABS: ESTIMATED AVERAGE GLUCOSE 123 mg/dL (70-100); HEMOGLOBIN A1c% 5.9 % (4.27-6.07)
== END 2022-06-28 14:11 | disposition home or self-care (01) ==
LOC: LAB 14:10
PROVIDERS: ATTEND Registered Nurse
DX: C61 Malignant neoplasm of prostate (principal); R97.20 Elevated prostate specific antigen [PSA]; N42.9 Disorder of prostate, unspecified; R73.02 Impaired glucose tolerance (oral); E78.5 Hyperlipidemia, unspecified; Z79.899 Other long term (current) drug therapy
CPT/HCPCS: 36415; 83036; 84153; 85025

== ENCOUNTER 2022-09-28 09:59 | Outpatient (CLI) | payer MEDICARE ==
[2022-09-28 10:34] LABS: CALCIUM 9.3 mg/dL (8.5-10.3); POTASSIUM 3.4 mmol/L (3.5-5.0)
== END 2022-09-28 10:00 | disposition home or self-care (01) ==
LOC: LAB 09:59
PROVIDERS: ATTEND Registered Nurse
DX: E78.5 Hyperlipidemia, unspecified (principal); C61 Malignant neoplasm of prostate; E83.51 Hypocalcemia
CPT/HCPCS: 36415; 82306; 82310; 84132; 84153

== ENCOUNTER 2023-04-21 09:07 | Outpatient (CLI) | payer MEDICARE | END 2023-04-21 09:08 | disposition home or self-care (01) | LOC: LAB 09:07 | PROVIDERS: ATTEND Radiology Radiation Oncology | DX: Z08 Encounter for follow-up examination after completed treatment for malignant neoplasm (principal); Z85.46 Personal history of malignant neoplasm of prostate | CPT/HCPCS: 36415; 84153 ==

== ENCOUNTER 2023-07-31 12:11 | Outpatient (CLI) | payer MEDICARE ==
[2023-07-31 12:31] LABS: BASOPHILS # (AUTO) 0.1 10^3/uL (0.0-0.1); BASOPHILS % (AUTO) 0.6 %; EOSINOPHILS # (AUTO) 0.1 10^3/uL (0.0-0.7); EOSINOPHILS % (AUTO) 1.6 %; HCT - HEMATOCRIT 45.5 % (42.0-52.0); HGB - HEMOGLOBIN 14.8 g/dL (14.0-18.0); LYMPHOCYTES # (AUTO) 1.4 10^3/uL (1.5-3.5); LYMPHOCYTES % (AUTO) 16.6 %; MEAN CORPUSCULAR HEMOGLOBIN 31.4 pg (27.0-31.0); MEAN CORPUSCULAR HGB CONC 32.5 g/dL (32.0-36.0); MEAN CORPUSCULAR VOLUME 96.4 fL (80.0-94.0); MEAN PLATELET VOLUME 9.7 fL (7.4-11.4); MONOCYTES # (AUTO) 0.8 10^3/uL (0.0-1.0); MONOCYTES % (AUTO) 9.3 %; NEUTROPHILS # (AUTO) 6.2 10^3/uL (1.5-6.6); NEUTROPHILS % (AUTO) 71.4 %; PLT - PLATELET COUNT 193 10^3/uL (130-450); RED BLOOD COUNT 4.72 10^6/uL (4.70-6.10); RED CELL DISTRIBUTION WIDTH 12.8 % (12.0-15.0); WHITE BLOOD COUNT 8.6 x10^3/uL (4.8-10.8)
[2023-07-31 13:25] LABS: THYROID STIMULATING HORMONE 1.59 uIU/mL (0.34-5.60)
[2023-07-31 13:29] LABS: ALBUMIN 4.6 g/dL (3.2-5.5); ALBUMIN/GLOBULIN RATIO 1.7 (1.0-2.2); ALKALINE PHOSPHATASE 71 IU/L (42-121); ALT ALANINE AMINOTRANSFERASE 30 IU/L (10-60); AST ASPARTATE AMINOTRANSFERASE 23 IU/L (10-42); BILIRUBIN,TOTAL 0.6 mg/dL (0.2-1.0); BUN - BLOOD UREA NITROGEN 17 mg/dL (6-20); CALCIUM 9.7 mg/dL (8.5-10.3); CARBON DIOXIDE - CO2 28 mmol/L (21-32); CHLORIDE 100 mmol/L (101-111); CHOL/HDL RATIO 4.6 (<5.0); CHOLESTEROL 249 mg/dL; GFR - MDRD 72 (>89); GLUCOSE 102 mg/dL (74-104); HDL CHOLESTEROL 54 mg/dL; LDL CHOLESTEROL,CALCULATED 162 mg/dL; POTASSIUM 3.9 mmol/L (3.5-4.5); SODIUM 138 mmol/L (135-145); TOTAL PROTEIN 7.3 g/dL (6.4-8.9); TRIGLYCERIDES 165 mg/dL (48-352); VLDL CHOLESTEROL 33 mg/dL
== END 2023-07-31 12:12 | disposition home or self-care (01) ==
LOC: LAB 12:11
PROVIDERS: ATTEND Registered Nurse
DX: C61 Malignant neoplasm of prostate (principal); Z13.228 Encounter for screening for other metabolic disorders; Z13.220 Encounter for screening for lipoid disorders; Z13.29 Encounter for screening for other suspected endocrine disorder; Z13.0 Encounter for screening for diseases of the blood and blood-forming organs and certain disorders involving the immune mechanism
CPT/HCPCS: 36415; 80053; 80061; 83721; 84153; 84443; 85025

== ENCOUNTER 2023-10-03 10:22 | Outpatient (CLI) | payer MEDICARE | END 2023-10-03 10:23 | disposition home or self-care (01) | LOC: LAB 10:22 | PROVIDERS: ATTEND Radiology Radiation Oncology | DX: Z08 Encounter for follow-up examination after completed treatment for malignant neoplasm (principal); Z85.46 Personal history of malignant neoplasm of prostate | CPT/HCPCS: 36415; 84153 ==